=== PATIENT | male | born 1975 | race Caucasian/White ===

== ENCOUNTER 2019-01-08 17:15 | Emergency (ER) | payer BC ==
[~2019-01-08 17:15] MED LIST: DOCU-416 PO; OXYC-865 PO
--- NOTE | 2019-01-08 17:24 | ER Report ---
History and Physical Time Seen By MD: 17:20 Hx. of Stated Complaint: LEFT ARM/ HAND NUMBNESS SINCE THIS MORNING. HAS HAPPENED IN THE PAST BUT NEVER FOR THIS LONG. PT ALSO REPORTS AN EPISODE OF LIGHT HEADEDNESS HPI/ROS CHIEF COMPLAINT: Lightheadedness and numbness to left arm HISTORY OF PRESENT ILLNESS: This is a 43-year-old male presents to emergency department for lightheadedness and numbness to left arm. Patient also states that he had some transient chest pain this morning, no shortness of breath, it did resolve. He also states that he's had periodic lightheadedness and dizziness for months now, he also states that he's had occasional numbness down the left arm, he has recurrent numbness today however it's not resolving or slow to resolve. No weakness to the left arm. He denies fevers or chills. No nausea or vomiting. No diaphoresis. No visual disturbances. He also states when he sees lightheadedness episodes he does have some flushing across the left side of his face. The patient does not have a primary care provider, no known family history of heart disease, aneurysms or MS. REVIEW OF SYSTEMS: Constitutional: No fever, no chills. Eyes: No discharge. ENT: No sore throat. Cardiovascular: As above. Respiratory: No cough, no shortness of breath. Gastrointestinal: No abdominal pain, no vomiting. Genitourinary: No hematuria. Musculoskeletal: No back pain. Skin: No rashes. Neurological: As above. Allergies: Coded Allergies: No Known Drug Allergies (Unverified , 11/28/16) Home Meds Active Scripts Docusate Sodium (COLACE) 100 Mg Capsule, 1 CAP PO BID, #30 CAP 0 Refills TAKE WITH A FULL GLASS OF WATER Prov:HAKAN GARCIA MD 11/29/16 Oxycodone Hcl/Acetaminophen (PERCOCET 5-325 MG TABLET) 1 Each Tablet, 1-2 TAB PO Q4H PRN for PAIN, #30 TAB 0 Refills Prov:HAKAN GARCIA MD 11/29/16 Past Medical/Surgical History The patient has a past medical surgical history of appendectomy. Reviewed Nurses Notes: Yes Hx Smoking: No Hx Substance Use Disorder: No Hx Alcohol Use: No Constitutional Vital Sign - Last 24 Hours 01/08/19 01/08/19 17:19 19:00 Temp 98.2 Pulse 80 78 Resp 16 B/P (MAP) 129/85 142/88 (106) Pulse Ox 94 O2 Delivery Room Air Physical Exam General Appearance: The patient is alert, has no immediate need for airway protection and no signs of toxicity. Eyes: Pupils equal and round no pallor or injection. EOMs intact, no nystagmus. ENT, Mouth: Mucous membranes are moist. TMs pearly jaffe, landmarks noted, no injection. Respiratory: There are no retractions, lungs are clear to auscultation. Cardiovascular: Regular rate and rhythm. No murmurs, clicks or rubs. Gastrointestinal: Abdomen is soft and non tender, no masses, bowel sounds normal. Neurological: Alert and oriented 4. Moving all extremities. Following all commands. No focal neurodeficits. Skin: Warm and dry, no rashes. Musculoskeletal: Neck is supple non tender. Extremities are nontender, nonswollen and have full range of motion. DIFFERENTIAL DIAGNOSIS: After history and physical exam differential diagnosis was considered for MS, radiculopathy, tumor, myocardial infarction, impingement syndrome, muscle spasm. Medical Decision Making Data Points Result Diagram: 01/08/19 1757 01/08/19 1800 Laboratory Hematology Test 01/08/19 17:57 01/08/19 18:00 Red Blood Count 5.18 M/uL (4.00-5.60) Mean Corpuscular Volume 90.8 fL (80.0-96.0) Mean Corpuscular Hemoglobin 31.8 pg (26.0-33.0) Mean Corpuscular Hemoglobin Concent 35.0 g/dL (32.0-36.0) Red Cell Distribution Width 13.7 % (11.5-14.5) Mean Platelet Volume 8.7 fL (7.2-11.1) Neutrophils (%) (Auto) 59.6 % (39.4-72.5) Lymphocytes (%) (Auto) 28.0 % (17.6-49.6) Monocytes (%) (Auto) 8.1 % (4.1-12.4) Eosinophils (%) (Auto) 3.4 % (0.4-6.7) Basophils (%) (Auto) 0.9 % (0.3-1.4) Nucleated RBC Relative Count (auto) 0.0 /100WBC Neutrophils # (Auto) 4.5 K/uL (2.0-7.4) Lymphocytes # (Auto) 2.1 K/uL (1.3-3.6) Monocytes # (Auto) 0.6 K/uL (0.3-1.0) Eosinophils # (Auto) 0.3 K/uL (0.0-0.5) Basophils # (Auto) 0.1 K/uL (0.0-0.1) Nucleated RBC Absolute Count (auto) 0.00 K/uL Sodium Level 141 mmol/L (137-145) Potassium Level 4.4 mmol/L (3.5-5.0) Chloride Level 105 mmol/L (98-107) Carbon Dioxide Level 25 mmol/L (22-30) Blood Urea Nitrogen 14 mg/dl (9-21) Creatinine 1.10 mg/dl (0.66-1.25) Glomerular Filtration Rate Calc > 60.0 Random Glucose 97 mg/dl (75-110) Calcium Level 9.7 mg/dl (8.4-10.2) Total Bilirubin 0.6 mg/dl (0.2-1.3) Aspartate Amino Transf (AST/SGOT) 25 U/L (0-35) Alanine Aminotransferase (ALT/SGPT) 49 U/L (0-56) Alkaline Phosphatase 81 U/L (0-126) Troponin I < 0.012 ng/ml Total Protein 8.0 g/dl (6.3-8.2) Albumin 4.6 g/dl (3.5-5.0) Chemistry Test 01/08/19 17:57 01/08/19 18:00 White Blood Count 7.5 k/uL (4.5-11.0) Red Blood Count 5.18 M/uL (4.00-5.60) Hemoglobin 16.4 g/dL (14.0-18.0) Hematocrit 47.0 % (42.0-52.0) Mean Corpuscular Volume 90.8 fL (80.0-96.0) Mean Corpuscular Hemoglobin 31.8 pg (26.0-33.0) Mean Corpuscular Hemoglobin Concent 35.0 g/dL (32.0-36.0) Red Cell Distribution Width 13.7 % (11.5-14.5) Platelet Count 241 K/uL (150-450) Mean Platelet Volume 8.7 fL (7.2-11.1) Neutrophils (%) (Auto) 59.6 % (39.4-72.5) Lymphocytes (%) (Auto) 28.0 % (17.6-49.6) Monocytes (%) (Auto) 8.1 % (4.1-12.4) Eosinophils (%) (Auto) 3.4 % (0.4-6.7) Basophils (%) (Auto) 0.9 % (0.3-1.4) Nucleated RBC Relative Count (auto) 0.0 /100WBC Neutrophils # (Auto) 4.5 K/uL (2.0-7.4) Lymphocytes # (Auto) 2.1 K/uL (1.3-3.6) Monocytes # (Auto) 0.6 K/uL (0.3-1.0) Eosinophils # (Auto) 0.3 K/uL (0.0-0.5) Basophils # (Auto) 0.1 K/uL (0.0-0.1) Nucleated RBC Absolute Count (auto) 0.00 K/uL Glomerular Filtration Rate Calc > 60.0 Calcium Level 9.7 mg/dl (8.4-10.2) Total Bilirubin 0.6 mg/dl (0.2-1.3) Aspartate Amino Transf (AST/SGOT) 25 U/L (0-35) Alanine Aminotransferase (ALT/SGPT) 49 U/L (0-56) Alkaline Phosphatase 81 U/L (0-126) Troponin I < 0.012 ng/ml Total Protein 8.0 g/dl (6.3-8.2) Albumin 4.6 g/dl (3.5-5.0) EKG/Imaging EKG Interpretation 12 lead EKG: Time of EKG 1755. Rhythm: Normal sinus rhythm, ventricular rate 61 bpm. [place]: normal QRS: normal ST segments: No ST depression or elevation identified, incomplete right bundle-branch block. Imaging PATIENT NAME: Morales Nicolas : 1975 MR: [id number] V: [id number] EXAM DATE: ORDERING PHYSICIAN: FLORENCE SANTOS TECHNOLOGIST: Location: [facility] Patient: Morales Nicolas : 1975 Visit/Account:[id number] Date of Sevice: 01/08/2019 CHEST PA LAT Additional pertinent History: Numbness COMPARISON STUDIES: none FINDINGS: Support lines and catheters: None Lungs and Pleura: Lung puente well expanded with no infiltrates or consol idations. No parenchymal mass lesions are seen. There are no effusions Heart and vasculature: Negative. Ainsley and Mediastinum: Negative. Bones and Chest wall: Negative. Upper Abdomen: Negative. IMPRESSION: 1. Negative chest for acute cardiopulmonary disease Report Dictated By: Marvin Siegel MD at 01/08/2019 6:44 PM Report E-Signed By: Marvin Siegel MD at 01/08/2019 6:48 PM WSN:[id number] PATIENT NAME: Morales Nicolas : 1975 MR: [id number] V: [id number] EXAM DATE: ORDERING PHYSICIAN: FLORENCE SANTOS TECHNOLOGIST: Location: [facility] Patient: Morales Nicolas : 1975 Visit/Account:[id number] Date of Sevice: 01/08/2019 CT BRAIN NO CONTRAST EXAMINATION: CT head/brain without contrast HISTORY: , Numbness TECHNIQUE: Contiguous axial images were obtained from the skull base to the vertex without intravenous contrast. One of the following dose optimization techniques was utilized in the performance of this exam: Automated exposure control; adjustment of the mA and/or kV according to the patient's size; or use of an iterative reconstruction technique. Specific details can be referenced in the facility's radiology CT exam operational policy. COMPARISON STUDIES: None known FINDINGS: Ventricles/sulci/fissures: Negative Masses/hemorrhage/midline shift: Negative White matter: Negative Jaffe-white differentiation: Negative Extra-axial spaces: Negative Dural venous sinuses/arterial structures: Negative Skull base/calvarium: Negative Visualized mastoid air cells/paranasal sinuses: Bilateral mucous retention cyst or polyps in both maxillary sinuses. IMPRESSION: 1. Negative CT scan of the head for acute intracranial pathology. 2. Mucous retention cyst or polyps in both maxillary sinuses. Report Dictated By: Marvin Siegel MD at 01/08/2019 6:41 PM Report E-Signed By: Marvin Siegel MD at 01/08/2019 6:44 PM WSN:[id number] ED Course/Re-evaluation Clinical Indication for ER IV: IV Access ED Course The patient was admitted to room. A history and physical obtained. Different diagnoses were considered. An IV was started. A CBC, CMP, troponin were obtained. Lab studies were unremarkable, normal troponin. A two-view chest x-ray was negative for any acute cardiac pulmonary process. Negative head CT. I did review the laboratory studies with the patient. We did discuss possibilities, one of which would be some mild cervical radiculopathy secondary to his repetitive motion at work, we discussed raising his screen I also recommend physical therapy, I also recommended establishing with him following up with a primary care provider within the next 1-2 weeks for reevaluation as well as fur ther evaluation of his cholesterol as well as the discussion of an MRI and following up with neurology. The patient expressed understanding, was agreeable with this plan care and discharged home. Decision to Disposition Date: Jan 08, 2019 Decision to Disposition Time: 19:03 Depart Departure Latest Vital Signs Vital Signs Date Time Temp Pulse Resp B/P (MAP) Pulse Ox O2 Delivery O2 Flow Rate FiO2 01/08/19 19:00 78 142/88 (106) 01/08/19 17:19 98.2 16 94 Room Air Impression: Primary Impression: Non-cardiac chest pain Additional Impressions: Left arm numbness Intermittent lightheadedness Condition: Improved Disposition: HOME OR SELF-CARE Patient Instructions: Chest Wall Pain (ED), Lightheadedness (ED) Additional Instructions: No concerning findings on your lab studies today, normal EKG, Normal Chest Xray. No concerning findings on your head CT. The intermittent numbness could be repetitive movements from work, raise your work station or computer screen to eye level. Follow up with Physical therapy, this may help with the lightheadedness and arm numbness. I want you to establish with and follow up with an primary care provider within 1-2 weeks. Although your labs look great, you will need additional blood work to look at cholesterol, etc.. Possible MRI of the brain for further evaluation of the lightheadedness. Be sure to drink plenty of water. Get plenty of rest. Return to the ED for any other concerns or worsening symptoms. Problem Qualifiers FLORENCE SANTOS SENIOR GRAPHIC DESIGNER-BC Jan 08, 2019 17:24
--- NOTE | 2019-01-08 18:10 | EKG ---
FACILITY: [facility] PATIENT NAME: SUMMER MORTON : [id number] MR: [id number] V: [id number] EXAM DATE: ORDERING PHYSICIAN: FLORENCE SANTOS TECHNOLOGIST: ILENE Test Reason : CP Blood Pressure : / mmHG Vent. Rate : 061 BPM Atrial Rate : 061 BPM P-R Int : 158 ms QRS Dur : 118 ms QT Int : 376 ms P-R-T Axes : 031 043 015 degrees QTc Int : 378 ms Normal sinus rhythm with sinus arrhythmia Normal ECG No previous ECGs available Confirmed by CEDRIC LEE ([id number]) on 01/08/2019 10:16:20 PM Referred By: SYDNEY Confirmed By:CEDRIC LEE
--- NOTE | 2019-01-08 18:51 | RADIOLOGY IMAGING REPORT ---
FACILITY: [facility] PATIENT NAME: Morales Nicolas : 1975 MR: [id number] V: [id number] EXAM DATE: ORDERING PHYSICIAN: FLORENCE SANTOS TECHNOLOGIST: Location: [facility] Patient: Morales Nicolas : 1975 Visit/Account:[id number] Date of Sevice: 01/08/2019 CT BRAIN NO CONTRAST EXAMINATION: CT head/brain without contrast HISTORY: , Numbness TECHNIQUE: Contiguous axial images were obtained from the skull base to the vertex without intravenou s contrast. One of the following dose optimization techniques was utilized in the performance of this exam: Autom ated exposure control; adjustment of the mA and/or kV according to the patient's size; or use of an i terative reconstruction technique. Specific details can be referenced in the facility's radiology C T exam operational policy. COMPARISON STUDIES: None known FINDINGS: Ventricles/sulci/fissures: Negative Masses/hemorrhage/midline shift: Negative White matter: Negative Jaffe-white differentiation: Negative Extra-axial spaces: Negative Dural venous sinuses/arterial structures: Negative Skull base/calvarium: Negative Visualized mastoid air cells/paranasal sinuses: Bilateral mucous retention cyst or polyps in both max illary sinuses. IMPRESSION: 1. Negative CT scan of the head for acute intracranial pathology. 2. Mucous retention cyst or polyps in both maxillary sinuses. Report Dictated By: Marvin Siegel MD at 01/08/2019 6:41 PM Report E-Signed By: Marvin Siegel MD at 01/08/2019 6:44 PM WSN:[id number]
[2019-01-08 18:54] LABS: PLATELET COUNT, AUTOMATED 241 K/uL (150-450)
--- NOTE | 2019-01-08 18:54 | RADIOLOGY IMAGING REPORT ---
FACILITY: [facility] PATIENT NAME: Morales Nicolas : 1975 MR: [id number] V: [id number] EXAM DATE: ORDERING PHYSICIAN: FLORENCE SANTOS TECHNOLOGIST: [place] [facility] [place] Morales [place] : 1975 Visit/Account:[id number] Date of Sevice: 01/08/2019 CHEST PA LAT Additional pertinent History: Numbness COMPARISON STUDIES: none FINDINGS: Support lines and catheters: None Lungs and Pleura: Lung puente well expanded with no infiltrates or consolidations. No parenchymal ma ss lesions are seen. There are no effusions Heart and vasculature: Negative. Ainsley and Mediastinum: Negative. Bones and Chest wall: Negative. Upper Abdomen: Negative. IMPRESSION: 1. Negative chest for acute cardiopulmonary disease Report Dictated By: Marvin Siegel MD at 01/08/2019 6:44 PM Report E-Signed By: Marvin Siegel MD at 01/08/2019 6:48 PM WSN:[id number]
[2019-01-08 19:00] VITALS: BP 142/88
== END 2019-01-08 19:16 | disposition home or self-care (01) ==
LOC: ER 17:51
DX: R07.9 Chest pain, unspecified (principal); R20.0 Anesthesia of skin; R42 Dizziness and giddiness
CPT/HCPCS: 70450; 71046; 82040; 82247; 82310; 82374; 82435; 82565; 82947; 84075; 84132; 84155; 84295; 84450; 84460; 84484; 84520; 85025; 93005; 99284